=== PATIENT | female | born 1995 | race Hispanic/Latino ===

== ENCOUNTER 2020-07-11 22:37 | Emergency (ER) | payer OTHER ==
[~2020-07-11] VITALS: Ht 160 cm; Wt 52.3 kg
[2020-07-11] MEDS ORDERED: PROAAER10 INH (22:56)
[2020-07-11] MEDS ORDERED: [UNRECOGNIZED DRUG - REMARK] (22:59)
[2020-07-11] MEDS ORDERED: ACETAMINOPHEN 500 MG TAB PO ONE (23:45)
[2020-07-12 00:41] LABS: BASO % 0.2 % (0.0-1.0); EOS # 0.2 10^3/uL (0.0-0.5); EOS % 2.5 % (0.0-3.0); HEMATOCRIT 34.8 % (36.0-47.0); HEMOGLOBIN 11.2 g/dl (12.0-15.5); LYMPH # 1.7 10^3/uL (1.5-5.0); MEAN CORPUSCULAR HEMOGLOBIN 31.2 pg (27.0-33.0); MEAN CORPUSCULAR HGB CONC 32.2 g/dl (32.0-36.5); MEAN CORPUSCULAR VOLUME 96.9 fl (80.0-96.0); MONO # 0.4 10^3/uL (0.0-0.8); MONO % 5.2 % (0.0-5.0); NEUTROPHILS # 5.7 10^3/uL (1.5-8.5); NEUTROPHILS % 70.2 % (36.0-66.0); PLATELET COUNT, AUTOMATED 258 10^3/uL (150-450); RED BLOOD COUNT 3.59 10^6/uL (4.00-5.40); WHITE BLOOD COUNT 8.1 10^3/uL (4.0-10.0)
[2020-07-12 00:56] LABS: HCG, SERUM QUALITATIVE NEGATIVE (NEGATIVE); INR 0.9; PROTHROMBIN TIME 12.3 SECONDS (12.5-14.3)
[2020-07-12 00:59] LABS: D-DIMER QUANT 995.04 ng/ml (<500)
[2020-07-12 01:02] LABS: ALBUMIN 3.7 GM/DL (3.2-5.2); ALT/SGPT 17 U/L (12-78); BILIRUBIN,TOTAL < 0.1 MG/DL (0.2-1.0); BLOOD UREA NITROGEN 13 MG/DL (7-18); C REACTIVE PROTEIN QUANTITATIV 0.59 MG/DL (0.00-0.30); CALCIUM LEVEL 8.9 MG/DL (8.5-10.1); CARBON DIOXIDE LEVEL 27 MEQ/L (21-32); CHLORIDE LEVEL 108 MEQ/L (98-107); CK-MB VALUE MASS 1.1 NG/ML (<3.6); CPK CREATINE PHOSPHOKINASE 62 U/L (26-192); CREATININE FOR GFR 0.77 MG/DL (0.55-1.30); FERRITIN 53 NG/ML (8-252); GLOMERULAR FILTRATION RATE > 60.0 (>60); GLUCOSE, FASTING 99 MG/DL (70-100); MB/CK RELATIVE INDEX 1.77 (< OR =4); POTASSIUM SERUM 3.7 MEQ/L (3.5-5.1); SODIUM LEVEL 139 MEQ/L (136-145); TOTAL PROTEIN 7.5 GM/DL (6.4-8.2); TROPONIN I < 0.02 NG/ML (< 0.10)
--- NOTE | 2020-07-12 02:23 | REPVR ---
PROCEDURE INFORMATION: Exam: XR Chest, 1 View Exam date and time: 07/12/2020 1:46 AM Age: 24 years old Clinical indication: Other: Coronavirus workup TECHNIQUE: Imaging protocol: XR of the chest Views: 1 view. COMPARISON: No relevant prior studies available. FINDINGS: Lungs: Unremarkable. No consolidation. Pleural space: Unremarkable. No pleural effusion. No pneumothorax. Heart/Mediastinum: Unremarkable. No cardiomegaly. Bones/joints: Unremarkable. IMPRESSION: No acute findings. Electronically signed by: Joey Cee On 07/12/2020 02:23:19 AM
[2020-07-12 03:31] VITALS: BP 122/72
== END 2020-07-12 03:57 | disposition home or self-care (01) ==
LOC: M ED 22:37
DX: J00 Acute nasopharyngitis [common cold] (principal); J45.909 Unspecified asthma, uncomplicated; Z88.8 Allergy status to other drugs, medicaments and biological substances

== ENCOUNTER → 2020-11-13 | Outpatient (CLI) | payer OTHER ==
[~2020-11-13] MED LIST: PROAAER10 INH; [UNRECOGNIZED DRUG - REMARK]
== END ==
LOC: M LABSMTC 14:15
PROVIDERS: ATTEND Family Medicine
DX: Z20.828 Contact with and (suspected) exposure to other viral communicable diseases (principal)
CPT/HCPCS: C9803; U0003

== ENCOUNTER 2020-12-02 11:59 | Emergency (ER) | payer OTHER ==
[~2020-12-02] VITALS: Ht 162.6 cm; Wt 58.2 kg
[2020-12-02] MEDS ORDERED: ONDANSETRON 4MG/2ML VIAL IV ONE (16:05)
[2020-12-02] MEDS ORDERED: NS 500 ML IV ONE (16:05)
[2020-12-02 16:27] LABS: URINE PREG TEST POSITIVE (NEGATIVE)
[2020-12-02 16:41] LABS: BASO % 0.3 % (0.0-1.0); EOS # 0.1 10^3/uL (0.0-0.5); EOS % 1.9 % (0.0-3.0); HEMOGLOBIN 11.9 g/dl (12.0-15.5); LYMPH # 2.2 10^3/uL (1.5-5.0); LYMPH % 31.7 % (24.0-44.0); MEAN CORPUSCULAR HEMOGLOBIN 31.5 pg (27.0-33.0); MEAN CORPUSCULAR HGB CONC 33.1 g/dl (32.0-36.5); MEAN CORPUSCULAR VOLUME 95.2 fl (80.0-96.0); MONO # 0.4 10^3/uL (0.0-0.8); NEUTROPHILS # 4.1 10^3/uL (1.5-8.5); NEUTROPHILS % 59.8 % (36.0-66.0); PLATELET COUNT, AUTOMATED 273 10^3/uL (150-450); RED BLOOD COUNT 3.78 10^6/uL (4.00-5.40); WHITE BLOOD COUNT 6.9 10^3/uL (4.0-10.0)
[2020-12-02] MEDS ORDERED: REGL10TA6 PO (16:44)
[2020-12-02 17:06] LABS: ALT/SGPT 16 U/L (12-78); BILIRUBIN,TOTAL 0.3 MG/DL (0.2-1.0); BLOOD UREA NITROGEN 9 MG/DL (7-18); CALCIUM LEVEL 9.2 MG/DL (8.5-10.1); CARBON DIOXIDE LEVEL 26 MEQ/L (21-32); CHLORIDE LEVEL 107 MEQ/L (98-107); CREATININE FOR GFR 0.58 MG/DL (0.55-1.30); GLOMERULAR FILTRATION RATE > 60.0 (>60); GLUCOSE, FASTING 80 MG/DL (70-100); LIPASE 134 U/L (73-393); POTASSIUM SERUM 3.6 MEQ/L (3.5-5.1); SODIUM LEVEL 138 MEQ/L (136-145); TOTAL PROTEIN 7.2 GM/DL (6.4-8.2)
[2020-12-02 17:59] VITALS: BP 106/60
== END 2020-12-02 18:01 | disposition home or self-care (01) ==
LOC: M ED 11:59
DX: Z32.01 Encounter for pregnancy test, result positive (principal); R11.2 Nausea with vomiting, unspecified; R06.02 Shortness of breath; R53.83 Other fatigue; R50.81 Fever presenting with conditions classified elsewhere; R63.8 Other symptoms and signs concerning food and fluid intake; Z88.8 Allergy status to other drugs, medicaments and biological substances
CPT/HCPCS: 80053; 81001; 83690; 84703; 85025; 87798; 96361; 96374; 99284; J2405

== ENCOUNTER 2020-12-22 08:15 | Emergency (ER) | payer OTHER ==
[~2020-12-22] VITALS: Ht 157.5 cm; Wt 55.9 kg
[~2020-12-22 08:15] MED LIST changes: +REGL10TA6 PO
[2020-12-22 08:48] LABS: BASO % 0.2 % (0.0-1.0); EOS # 0.2 10^3/uL (0.0-0.5); EOS % 3.5 % (0.0-3.0); HEMATOCRIT 35.3 % (36.0-47.0); HEMOGLOBIN 11.4 g/dl (12.0-15.5); LYMPH # 1.8 10^3/uL (1.5-5.0); LYMPH % 30.1 % (24.0-44.0); MEAN CORPUSCULAR HEMOGLOBIN 31.1 pg (27.0-33.0); MEAN CORPUSCULAR HGB CONC 32.3 g/dl (32.0-36.5); MEAN CORPUSCULAR VOLUME 96.2 fl (80.0-96.0); MONO # 0.3 10^3/uL (0.0-0.8); NEUTROPHILS # 3.7 10^3/uL (1.5-8.5); PLATELET COUNT, AUTOMATED 217 10^3/uL (150-450); RED BLOOD COUNT 3.67 10^6/uL (4.00-5.40)
[2020-12-22 09:06] LABS: AMORPHOUS SEDIMENT SMALL (NEGATIVE); APPEARANCE, URINE HAZY (CLEAR); BACTERIA, URINE AUTO 1+ (NEGATIVE); BILIRUBIN, URINE AUTO NEGATIVE (NEGATIVE); BLOOD, URINE BLOOD NEGATIVE (NEGATIVE); COLOR, URINE YELLOW (YELLOW); GLUCOSE, URINE (UA) AUTO NEGATIVE (NEGATIVE); KETONE, URINE AUTO NEGATIVE (NEGATIVE); LEUKOCYTE ESTERASE, URINE AUTO NEGATIVE (NEGATIVE); NITRITE, URINE AUTO NEGATIVE (NEGATIVE); PROTEIN, URINE AUTO NEGATIVE (NEGATIVE); RBC, URINE AUTO 1 /HPF (0-3); SPECIFIC GRAVITY URINE AUTO 1.018 (1.002-1.035); SQUAMOUS EPITHELIAL CELL UR AU 1 /HPF (0-6); UROBILINOGEN, URINE AUTO 0.2 mg/dL (0.0-2.0); WBC, URINE AUTO 1 /HPF (0-3)
[2020-12-22] MEDS ORDERED: METOCLOPRAMIDE INJ 10MG/2ML VIAL (J2765 PER 1) IV ONE (09:15)
[2020-12-22] MEDS ORDERED: ACETAMINOPHEN TAB 650MG DOSE (2X325MG) PO ONE (09:15)
[2020-12-22] MEDS ORDERED: NS 1,000 ML IV ONE (09:15)
[2020-12-22 09:27] LABS: BLOOD UREA NITROGEN 11 MG/DL (7-18); CALCIUM LEVEL 8.9 MG/DL (8.5-10.1); CARBON DIOXIDE LEVEL 25 MEQ/L (21-32); CHLORIDE LEVEL 109 MEQ/L (98-107); CREATININE FOR GFR 0.47 MG/DL (0.55-1.30); GLOMERULAR FILTRATION RATE > 60.0 (>60); GLUCOSE, FASTING 72 MG/DL (70-100); HCG, SERUM QUANTITATIVE 69091 MIU/ML; POTASSIUM SERUM 4.7 MEQ/L (3.5-5.1); SODIUM LEVEL 140 MEQ/L (136-145)
--- NOTE | 2020-12-22 10:06 | REP ---
INDICATION: 8 weeks, vag bleeding, pelvic cramping COMPARISON: None. TECHNIQUE: Transabdominal 1st trimester obstetrical ultrasound with color Doppler evaluation. FINDINGS: Single live early intrauterine is appreciated. Gestational sac with yolk sac and pole identified. [place]-rump length of 9 mm corresponds to 7 weeks 0 days gestational age with estimated date of delivery 08/10/2021. heart rate equals 158 beats per minute. No gross abnormalities are identified. Maternal ovaries are normal and a 2 cm involuting right corpus luteal cyst is identified. IMPRESSION: Single live early intrauterine at 7 weeks 0 days gestational age. Complete anatomical assessment should be performed and 19-20 weeks. <Electronically signed by Ravi Elaine > 12/22/20 1002
[2020-12-22] MEDS ORDERED: CEPH500C PO (12:50)
[2020-12-22 13:10] VITALS: BP 111/62
== END 2020-12-22 13:12 | disposition home or self-care (01) ==
LOC: M ED 08:15
DX: O20.0 Threatened abortion (principal); O26.891 Other specified pregnancy related conditions, first trimester; Z32.01 Encounter for pregnancy test, result positive; O34.81 Maternal care for other abnormalities of pelvic organs, first trimester; O26.851 Spotting complicating pregnancy, first trimester; O23.91 Unspecified genitourinary tract infection in pregnancy, first trimester; O9A.211 Injury, poisoning and certain other consequences of external causes complicating pregnancy, first trimester; Z86.19 Personal history of other infectious and parasitic diseases; O99.341 Other mental disorders complicating pregnancy, first trimester; O99.511 Diseases of the respiratory system complicating pregnancy, first trimester; Z3A.01 Less than 8 weeks gestation of pregnancy; Z88.8 Allergy status to other drugs, medicaments and biological substances
CPT/HCPCS: 76801; 80048; 81001; 84702; 85025; 86850; 86900; 86901; 87086; 87210; 87490; 87590; 87661; 87798; 96361; 96374; 99283; J2765

== ENCOUNTER → 2021-02-03 | Outpatient (CLI) | payer SELFPAY ==
[~2021-02-03] MED LIST changes: +CEPH500C PO
== END ==
LOC: M LABSMTC 10:23
PROVIDERS: ATTEND Pediatrics
DX: Z11.52 Encounter for screening for COVID-19 (principal)

== ENCOUNTER 2021-02-16 15:40 | Emergency (ER) | payer OTHER, SELFPAY ==
[~2021-02-16] VITALS: Ht 160 cm; Wt 59.5 kg
[2021-02-16] MEDS ORDERED: PREN1CHW PO (15:53)
[2021-02-16] MEDS ORDERED: ONDANSETRON 4MG/2ML VIAL As Ordered ONE (16:31)
[2021-02-16 16:47] LABS: BASO % 0.1 % (0.0-1.0); EOS # 0.2 10^3/uL (0.0-0.5); EOS % 2.5 % (0.0-3.0); HEMATOCRIT 30.3 % (36.0-47.0); HEMOGLOBIN 10.9 g/dl (12.0-15.5); LYMPH % 21.9 % (24.0-44.0); MEAN CORPUSCULAR HEMOGLOBIN 32.8 pg (27.0-33.0); MEAN CORPUSCULAR VOLUME 91.3 fl (80.0-96.0); MONO # 0.4 10^3/uL (0.0-0.8); MONO % 4.5 % (2.0-8.0); NEUTROPHILS # 6.5 10^3/uL (1.5-8.5); NEUTROPHILS % 70.5 % (36.0-66.0); PLATELET COUNT, AUTOMATED 243 10^3/uL (150-450); RED BLOOD COUNT 3.32 10^6/uL (4.00-5.40); WHITE BLOOD COUNT 9.3 10^3/uL (4.0-10.0)
[2021-02-16] MEDS ORDERED: NS 1,000 ML IV ONE (17:20)
[2021-02-16] MEDS ORDERED: ONDANSETRON 4MG/2ML VIAL IV ONE (17:20)
[2021-02-16 17:55] LABS: BLOOD UREA NITROGEN 8 MG/DL (7-18); CALCIUM LEVEL 7.4 MG/DL (8.5-10.1); CARBON DIOXIDE LEVEL 18 MEQ/L (21-32); CHLORIDE LEVEL 117 MEQ/L (98-107); CREATININE FOR GFR 0.19 MG/DL (0.55-1.30); GLOMERULAR FILTRATION RATE > 60.0 (>60); GLUCOSE, FASTING 69 MG/DL (70-100); POTASSIUM SERUM 3.3 MEQ/L (3.5-5.1); SODIUM LEVEL 144 MEQ/L (136-145)
--- NOTE | 2021-02-16 18:16 | REP ---
INDICATION: 14 wks, vag bldh. COMPARISON: Comparison study Dec 22 2020.. TECHNIQUE: Transabdominal obstetric sonography. FINDINGS: Scanning through the gravid uterus demonstrates a viable single intrauterine gestation in cephalic lie. motion is observed and heart rate is recorded at 158 beats per minute. A posterior placenta is seen, grade 0, without evidence of placenta previa. Closed cervical length is measured at 3.1 cm transabdominally. No extrauterine abnormality is observed. Amniotic fluid is subjectively normal. . Biometry chart: BPD 3.0 cm, 15 weeks 3 days Head circumference 11.3 cm, 15 weeks 4 days Abdominal circumference 10.4 cm, 16 weeks 3 days Femur length 1.9 cm, 15 weeks 4 days Humeral length 1.9 cm, 15 weeks 3 days HC AC ratio normal 1.09 Cephalic index normal 0.71 Estimated weight 140 g, 0 lb 4 oz IMPRESSION: Viable single intrauterine gestation at 15 weeks 5 days by today's composite sonographic criteria. BORIS by today's sonography August 05, 2021. No complication identified. Expected gestational age estimate based on prior sonography 15 weeks 0 days. BORIS by prior sonography 10 August 2021. No complications seen. <Electronically signed by Talat Morales > 02/16/21 [id number]
[2021-02-16 18:33] LABS: ALBUMIN 2.5 GM/DL (3.2-5.2); ALT/SGPT 20 U/L (12-78); BILIRUBIN,DIRECT < 0.1 MG/DL (0.0-0.2); BILIRUBIN,TOTAL 0.1 MG/DL (0.2-1.0); HCG, SERUM QUANTITATIVE 24258 MIU/ML; LIPASE 117 U/L (73-393); TOTAL PROTEIN 5.3 GM/DL (6.4-8.2)
[2021-02-16 19:10] LABS: GC DNA AMPLIFICATION NEGATIVE (NEGATIVE)
[2021-02-16] MEDS ORDERED: POTASSIUM CHLORIDE 10 MEQ SR TABLET PO ONE (19:30)
[2021-02-16 20:15] VITALS: BP 117/60
--- NOTE | 2021-02-17 20:28 | ECGEPIP ---
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
== END 2021-02-16 20:23 | disposition home or self-care (01) ==
LOC: M ED 17:17
DX: O20.0 Threatened abortion (principal); O99.342 Other mental disorders complicating pregnancy, second trimester; Z86.19 Personal history of other infectious and parasitic diseases; Z3A.15 15 weeks gestation of pregnancy; Z88.8 Allergy status to other drugs, medicaments and biological substances
CPT/HCPCS: 76811; 80048; 80076; 81001; 83690; 84702; 85025; 86850; 86900; 86901; 87086; 87210; 87661; 93005; 96361; 96374; 99284; J2405

== ENCOUNTER 2021-05-06 12:54 | Emergency (ER) | payer OTHER ==
[~2021-05-06] VITALS: Ht 160 cm; Wt 65.9 kg
[~2021-05-06 12:54] MED LIST changes: +PREN1CHW PO
[2021-05-06 15:31] LABS: RSV AMPLIFICATION NEGATIVE (NEGATIVE)
[2021-05-06 19:37] LABS: BASO % 0.1 % (0.0-1.0); EOS # 0.1 10^3/uL (0.0-0.5); EOS % 0.8 % (0.0-3.0); HEMATOCRIT 32.5 % (36.0-47.0); HEMOGLOBIN 10.7 g/dl (12.0-15.5); LYMPH # 1.5 10^3/uL (1.5-5.0); LYMPH % 13.9 % (24.0-44.0); MEAN CORPUSCULAR HEMOGLOBIN 32.2 pg (27.0-33.0); MEAN CORPUSCULAR HGB CONC 32.9 g/dl (32.0-36.5); MEAN CORPUSCULAR VOLUME 97.9 fl (80.0-96.0); MONO # 0.5 10^3/uL (0.0-0.8); MONO % 4.7 % (2.0-8.0); NEUTROPHILS # 8.8 10^3/uL (1.5-8.5); NEUTROPHILS % 79.9 % (36.0-66.0); PLATELET COUNT, AUTOMATED 235 10^3/uL (150-450); RED BLOOD COUNT 3.32 10^6/uL (4.00-5.40)
[2021-05-06 20:07] LABS: ALT/SGPT 18 U/L (12-78); BILIRUBIN,DIRECT < 0.1 MG/DL (0.0-0.2); BILIRUBIN,TOTAL 0.2 MG/DL (0.2-1.0); BLOOD UREA NITROGEN 7 MG/DL (7-18); CALCIUM LEVEL 8.6 MG/DL (8.5-10.1); CARBON DIOXIDE LEVEL 26 MEQ/L (21-32); CHLORIDE LEVEL 105 MEQ/L (98-107); CK-MB VALUE MASS < 1.0 NG/ML (<3.6); CPK CREATINE PHOSPHOKINASE 25 U/L (26-192); CREATININE FOR GFR 0.42 MG/DL (0.55-1.30); GLOMERULAR FILTRATION RATE > 60.0 (>60); GLUCOSE, FASTING 71 MG/DL (70-100); LIPASE 101 U/L (73-393); POTASSIUM SERUM 3.9 MEQ/L (3.5-5.1); SODIUM LEVEL 137 MEQ/L (136-145); TOTAL PROTEIN 6.7 GM/DL (6.4-8.2); TROPONIN I < 0.02 NG/ML (< 0.10)
[2021-05-06] MEDS ORDERED: NS 1,000 ML IV ONE (20:35)
[2021-05-06] MEDS ORDERED: MULTIVITAMIN -ADULT INJECTION 10 ML, THIAMINE INJection 100 MG, FOLIC ACID 1 MG in NS 1... IV ONE (20:35)
[2021-05-06 21:26] VITALS: BP 139/64
[2021-05-06] MEDS ORDERED: FAMO1TAB11 PO (21:50)
[2021-05-06] MEDS ORDERED: MULTTAB20 PO (21:50)
[2021-05-06] MEDS ORDERED: HOME MED LIST COMPLETE! XX SCH (21:50)
[2021-05-06] MEDS ORDERED: FERR1TAB8 PO (21:50)
--- NOTE | 2021-05-06 21:57 | ECGEPIP ---
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
--- NOTE | 2021-05-06 23:23 | REPVR ---
PROCEDURE INFORMATION: Exam: US Abdomen, Limited; Right Upper Quadrant Exam date and time: 05/06/2021 9:41 PM Age: 25 years old Clinical indication: Abdominal pain; Acute; ; Additional info: Ruq pain, vomiting, TECHNIQUE: Imaging protocol: US abdomen. Real time ultrasound with image documentation. Limited exam focused on the right upper quadrant. COMPARISON: US OBS SINGEL GEST 02/16/2021 5:27 PM FINDINGS: Liver: The liver demonstrates no focal defects. Gallbladder: The gallbladder demonstrates no stones and no wall thickening measuring 2.6 mm. Common bile duct: The CBD measures 3 mm. Pancreas: The pancreas is normal. Right kidney: The right kidney is normal measuring 10.7 cm with no hydronephrosis. IMPRESSION: Negative right upper quadrant sonogram. Electronically signed by: Angelito Lyles On 05/06/2021 23:22:48 PM
== END 2021-05-06 22:16 | disposition admitted as inpatient to this hospital (09) ==
LOC: M ED 12:54
DX: O26.892 Other specified pregnancy related conditions, second trimester (principal); G89.28 Other chronic postprocedural pain; R07.9 Chest pain, unspecified; E16.2 Hypoglycemia, unspecified; O99.342 Other mental disorders complicating pregnancy, second trimester; O99.512 Diseases of the respiratory system complicating pregnancy, second trimester; Z88.0 Allergy status to penicillin

== ENCOUNTER 2021-05-06 22:09 | Outpatient (CLI) | payer OTHER ==
[~2021-05-06 22:09] MED LIST changes: +FAMO1TAB11 PO; +FERR1TAB8 PO; +MULTTAB20 PO
[2021-05-06 23:26] VITALS: BP 109/66
--- NOTE | 2021-05-06 23:36 | REPVR ---
PROCEDURE INFORMATION: Exam: US , Limited Exam date and time: 05/06/2021 11:22 PM Age: 25 years old Clinical indication: complicated by abdominal or pelvic pain; Generalized abdominal pain; Second trimester (14 weeks 0 days to 27 weeks 6 days); Gestational age or lmp: 26w2d; ; Additional info: Placental eval and cervical length TECHNIQUE: Imaging protocol: Real-time ultrasound of the maternal uterus with image documentation. Exam focused on the clinical indication. COMPARISON: US OBS SINGEL GEST 02/16/2021 5:27 PM FINDINGS: Gestation: Single intrauterine fetus. presentation: Breech presentation. heart rate: heartbeat of 143 bpm. Placenta: Fundal placenta with grade 1 change. Amniotic fluid index: NORMAN of 10.7 cm. MATERNAL: Cervix: The cervix is closed measuring 4.6 cm transabdominal and 4.7 cm transvaginal. IMPRESSION: 1. Single live intrauterine fetus in breech presentation. 2. Fundal placenta. 3. NORMAN of 10.7 cm. 4. Closed cervix measuring 4.7 cm transvaginal. Electronically signed by: Angelito Lyles On 05/06/2021 23:35:54 PM
[2021-05-06] MEDS ORDERED: TERBUTALINE SULFATE 1 MG/ML VIAL (J3105) SC ONE (23:40)
--- NOTE | 2021-05-07 01:14 | IPNPDOC ---
Text Note Date of Service The patient was seen on 05/06/21. NOTE Item Value Date Time White Blood Count 11.0 10^3/uL H 05/06/211918 Red Blood Count 3.32 10^6/uL L 05/06/211918 Hemoglobin 10.7 g/dl L 05/06/211918 Hematocrit 32.5 % L 05/06/211918 Mean Corpuscular Volume 97.9 fl H 05/06/211918 Mean Corpuscular Hemoglobin 32.2 pg 05/06/211918 Mean Corpuscular Hemoglobin Concent 32.9 g/dl 05/06/211918 Red Cell Distribution Width 13.0 % 05/06/211918 Platelet Count 235 10^3/uL 05/06/211918 Immature Granulocyte % (Auto) 0.6 % 05/06/211918 Neutrophils (%) (Auto) 79.9 % H 05/06/211918 Lymphocytes (%) (Auto) 13.9 % L 05/06/211918 Monocytes (%) (Auto) 4.7 % 05/06/211918 Eosinophils (%) (Auto) 0.8 % 05/06/211918 Basophils (%) (Auto) 0.1 % 05/06/211918 Neutrophils # (Auto) 8.8 10^3/uL H 05/06/211918 Lymphocytes # (Auto) 1.5 10^3/uL 05/06/211918 Monocytes # (Auto) 0.5 10^3/uL 05/06/211918 Eosinophils # (Auto) 0.1 10^3/uL 05/06/211918 Vital Signs Label Value Date Time Patient Temperature 98.4 degrees F 05/06/212125 Temperature Source Temporal 05/06/212125 Pulse 99 05/06/212125 Respiratory Rate 20 bpm 05/06/212125 Blood Pressure Assessment 139/64 (89) 05/06/212125 Location Right Arm Source Automatic Cuff (NIBP) Position Sitting Blood Pressure Assessment 103/57 (72) 05/06/212002 Location Right Arm Source Automatic Cuff (NIBP) Position Sitting Pulse 75 05/06/212002 Respiratory Rate 18 bpm 05/06/212002 Patient Temperature 98.5 degrees F 05/06/212002 Temperature Source Temporal 05/06/212002 Patient Temperature 98.1 degrees F 05/06/21 1255 Temperature Source Temporal 05/06/21 1255 Pulse 76 05/06/21 1255 Respiratory Rate 17 bpm 05/06/21 1255 Blood Pressure Assessment 112/63 (79) 05/06/21 1255 Location Left Arm Source Automatic Cuff (NIBP) Position Sitting Bedside Pulse Oximetry 98 % 05/06/21 1255 Item Value Date Time Oxygen Delivery Method Room Air 05/06/21212505/06/2021 25 y.o lmp 10/16/20 edc by early us 08/10/2020 came to ed at 1200 hours complaints of nausea ruq pain abdominal pain . no vaginal discharge no bleeding . also complaint's of chest pain . PATIENT IN ED HAD US RUQ RE R/O STONES HAD CARDIAC WORK UP NEGATIVE HAD US CERVIX 5.0 CM VERTEX NORMAN NORMAL NO ABRUPTIO NST CATEGORY 1 STRIP MODERATE VARIABILITY ACCELERATIONS NOTED NO DECELERATIONS NO CONTRACTIONS NORMAN NORMAL PELVIC EXAMINATION NOT DILATED THICK CLOSED CONFIRMED US FINDINGS . PLAN TO HYDRATE PRECAUTIONS AND DISCHARGE FOLLOW UP WITH JACQUIE HAYDEN OB, RISK FACTORS ASTHMA CT POSITIVE BOB NEGATIVE [facility] NAME: CAIN SPAIN DATE OF : 1995 BUSINESS NUMBER: [id number] AGE: 25 SEX: F REPORT #: [id number] ROOM: ED TECHNOLOGIST: DAYTON DOCTOR: BROOKLYN SELLERS PA-C Ordered for Date&Time: 05/06/211949 cc: [~ rep ct ivnm] Service Date&Time: 05/06/212140 This report is in Signed status. Interpretation performed by [facility]. Thank you for having your radiology procedures performed at [facility] REPORT Date&Time printed: [~ rep prt dt last] [~ rep prt tm last] Page 2 of 2 [place] [id number] RADIOLOGY REPORT This report is in Signed status. Interpretation performed by [facility]. Thank you for having your radiology procedures performed at [facility] REPORT Date&Time printed: [~ rep prt dt last] [~ rep prt tm last] Page 1 of 2 NAME: CAIN SPAIN DATE OF : 1995 BUSINESS NUMBER: [id number] AGE: 25 SEX: F REPORT #: [id number] ROOM: ED TECHNOLOGIST: DAYTON DOCTOR: BROOKLYN SELLERS PA-C Ordered for Date&Time: 05/06/211949 cc: [~ rep ct ivnm] Service Date&Time: 05/06/212140 EXAMINATION REQUESTED: GALLBLADDER US REASON FOR PATIENT VISIT: CHEST PAIN/DIZZINESS/ NAUSEA REASON FOR EXAMINATION: RUQ pain, vomiting, PROCEDURE INFORMATION: Exam: US Abdomen, Limited; Right Upper Quadrant Exam date and time: 05/06/2021 9:41 PM Age: 25 years old Clinical indication: Abdominal pain; Acute; ; Additional info: Ruq pain, vomiting, TECHNIQUE: Imaging protocol: US abdomen. Real time ultrasound with image documentation. Limited exam focused on the right upper quadrant. COMPARISON: US OBS SINGEL GEST 02/16/2021 5:27 PM FINDINGS: Liver: The liver demonstrates no focal defects. Gallbladder: The gallbladder demonstrates no stones and no wall thickening measuring 2.6 mm. Common bile duct: The CBD measures 3 mm. Pancreas: The pancreas is normal. Right kidney: The right kidney is normal measuring 10.7 cm with no hydronephrosis. IMPRESSION: Negative right upper quadrant sonogram. Electronically signed by: Roberto Lyles On 05/06/2021 23:22:48 PM NAME: CAIN SPAIN DATE OF : 1995 BUSINESS NUMBER: [id number] AGE: 25 SEX: F REPORT #: [id number] [facility]: [place] DOCTOR: Ambrocio Armenta MD Ordered for Date&Time: 05/06/214 cc: [~ rep ct ivnm] Service Date&Time: 05/06/21 2322 EXAMINATION REQUESTED: Obs. Limited, NORMAN US REASON FOR PATIENT VISIT: ABDOMINAL PAIN REASON FOR EXAMINATION: PLACENTAL EVAL AND CERVICAL LENGTH PROCEDURE INFORMATION: Exam: US , Limited Exam date and time: 05/06/2021 11:22 PM Age: 25 years old Clinical indication: complicated by abdominal or pelvic pain; Generalized abdominal pain; Second trimester (14 weeks 0 days to 27 weeks 6 days); Gestational age or lmp: 26w2d; ; Additional info: Placental eval and cervical length TECHNIQUE: Imaging protocol: Real-time ultrasound of the maternal uterus with image documentation. Exam focused on the clinical indication. COMPARISON: US OBS SINGEL GEST 02/16/2021 5:27 PM FINDINGS: Gestation: Single intrauterine fetus. presentation: Breech presentation. heart rate: heartbeat of 143 bpm. Placenta: Fundal placenta with grade 1 change. Amniotic fluid index: NORMAN of 10.7 cm. MATERNAL: Cervix: The cervix is closed measuring 4.6 cm transabdominal and 4.7 cm transvaginal. IMPRESSION: 1. Single live intrauterine fetus in breech presentation. 2. Fundal placenta. 3. NORMAN of 10.7 cm. 4. Closed cervix measuring 4.7 cm transvaginal. Electronically signed by: Roberto Lyles On 05/06/2021 23:35:54 PM DD: ROBERTO LYLES MD 05/06/212321 DT: KATIE 05/06/212334 DS: [facility] 05/06/212334 DD: ROBERTO LYLES MD 05/06/21 2141R DT: KATIE 05/06/212321 DS: [facility] 05/06/212321 [~ rep ct labl] REVIEWED US BREECH PRESENTATION NORMAN 10.7 CM CERVIX 4.6 CM NO FUNNELING . STILL CHEST PAIN HOWEVER CARDIAC WORK UP NORMAL ENZYMES NORMAL PATIENT HAVING CONTRACTIONS HOWEVER ALSO INCREASED ACTIVITY. PLAN GIVE TERBUTALINE CONTINUE TO HYDRATE OFFER MYLANTA IE POSSIBLE GAS OR GERD , POST TERBUTALINE NO CONTRACTIONS NO CHEST PAIN . DISCHARGED WITHPRECAUTIONS Ambrocio Armenta MD May 06, 2021 23:25
== END 2021-05-07 01:30 | disposition home or self-care (01) ==
LOC: M LDO 22:09
PROVIDERS: ATTEND Obstetrics & Gynecology
DX: O26.893 Other specified pregnancy related conditions, third trimester (principal); R11.0 Nausea; Z3A.26 26 weeks gestation of pregnancy; O32.1XX0 Maternal care for breech presentation, not applicable or unspecified; R10.9 Unspecified abdominal pain; R07.89 Other chest pain; Z88.8 Allergy status to other drugs, medicaments and biological substances
CPT/HCPCS: 36415; 59025; 76705; 76815; 76817; 80053; 81001; 82248; 82550; 82553; 83690; 84484; 85025; 87631; 93005; 96361; 96372; 96374; 99284; G0378; G0463; J3105; J3411

== ENCOUNTER 2021-07-08 07:45 | Inpatient (IN) | payer OTHER ==
[~2021-07-08] VITALS: Ht 160 cm; Wt 69.5 kg
[2021-07-08] VITALS (16 sets, daily range): BP systolic 96–133; BP diastolic 52–91
[2021-07-08] MEDS ORDERED: ACET500P3 PO (08:12)
[2021-07-08] MEDS ORDERED: VITA250T4 PO (08:12)
[2021-07-08] MEDS ORDERED: HOME MED LIST COMPLETE! XX SCH (08:15)
[2021-07-08] MEDS ORDERED: NS 1,000 ML IV ONE (09:05)
[2021-07-08] MEDS ORDERED: LACTATED RINGER'S 1000 ML IV ONE (09:35)
[2021-07-08] MEDS ORDERED: LR 1,000 ML IV SCH (09:35)
[2021-07-08 09:41] LABS: HEMATOCRIT 28.3 % (36.0-47.0); HEMOGLOBIN 9.5 g/dl (12.0-15.5); MEAN CORPUSCULAR HGB CONC 33.6 g/dl (32.0-36.5); MEAN CORPUSCULAR VOLUME 95.3 fl (80.0-96.0); PLATELET COUNT, AUTOMATED 213 10^3/uL (150-450); RED BLOOD COUNT 2.97 10^6/uL (4.00-5.40); WHITE BLOOD COUNT 8.8 10^3/uL (4.0-10.0)
[2021-07-08 09:42] LABS: APPEARANCE, URINE HAZY (CLEAR); BACTERIA, URINE AUTO NEGATIVE (NEGATIVE); BILIRUBIN, URINE AUTO NEGATIVE (NEGATIVE); BLOOD, URINE BLOOD 2+ (NEGATIVE); COLOR, URINE YELLOW (YELLOW); GLUCOSE, URINE (UA) AUTO NEGATIVE (NEGATIVE); KETONE, URINE AUTO NEGATIVE (NEGATIVE); LEUKOCYTE ESTERASE, URINE AUTO NEGATIVE (NEGATIVE); MUCUS, URINE SMALL (NEGATIVE); NITRITE, URINE AUTO NEGATIVE (NEGATIVE); PROTEIN, URINE AUTO NEGATIVE (NEGATIVE); RBC, URINE AUTO 3 /HPF (0-3); SPECIFIC GRAVITY URINE AUTO 1.016 (1.002-1.035); SQUAMOUS EPITHELIAL CELL UR AU 3 /HPF (0-6); WBC, URINE AUTO 2 /HPF (0-3)
[2021-07-08 11:32] LABS: GC DNA AMPLIFICATION NEGATIVE (NEGATIVE)
[2021-07-08] MEDS: BETAMETHASONE SOLUSPAN 6MG/ML 5ML VIAL (J0702 PER 3MG) IM SCH (12:15)
[2021-07-08] MEDS ORDERED: IRON SUCROSE 100MG 5ML VIAL (J1756 PER 1MG) IV SCH (13:00)
[2021-07-08] MEDS: IRON SUCROSE 200 MG in NS 100 ML OVER 1 HR IV SCH (15:23)
[2021-07-08] MEDS ORDERED: LR 500 ML IV ONE (23:35)
[2021-07-09] VITALS (11 sets, daily range): BP systolic 96–131; BP diastolic 50–67
[2021-07-09] MEDS ORDERED: LACTATED RINGER'S 1000 ML IV ONE (09:00)
[2021-07-09 09:08] LABS: HEMATOCRIT 29.7 % (36.0-47.0); MEAN CORPUSCULAR HEMOGLOBIN 32.1 pg (27.0-33.0); MEAN CORPUSCULAR HGB CONC 33.7 g/dl (32.0-36.5); MEAN CORPUSCULAR VOLUME 95.2 fl (80.0-96.0); PLATELET COUNT, AUTOMATED 222 10^3/uL (150-450); RED BLOOD COUNT 3.12 10^6/uL (4.00-5.40); WHITE BLOOD COUNT 14.1 10^3/uL (4.0-10.0)
[2021-07-09] MEDS: BETAMETHASONE SOLUSPAN 6MG/ML 5ML VIAL (J0702 PER 3MG) IM SCH (12:04)
[2021-07-09] MEDS: IRON SUCROSE 200 MG in NS 100 ML OVER 1 HR IV SCH (15:05)
[2021-07-10] VITALS (9 sets, daily range): BP systolic 100–129; BP diastolic 54–69
[2021-07-10 07:59] LABS: HEMOGLOBIN 8.7 g/dl (12.0-15.5); MEAN CORPUSCULAR HEMOGLOBIN 32.3 pg (27.0-33.0); MEAN CORPUSCULAR HGB CONC 33.5 g/dl (32.0-36.5); MEAN CORPUSCULAR VOLUME 96.7 fl (80.0-96.0); PLATELET COUNT, AUTOMATED 206 10^3/uL (150-450); RED BLOOD COUNT 2.69 10^6/uL (4.00-5.40)
[2021-07-10 08:11] LABS: INR 0.97; PROTHROMBIN TIME 13.3 SECONDS (12.7-14.5)
[2021-07-10 08:12] LABS: PARTIAL THROMBOPLASTIN TIME 30.4 SECONDS (25.9-37.0)
[2021-07-10 08:25] LABS: ALBUMIN 2.3 GM/DL (3.2-5.2); ALT/SGPT 11 U/L (12-78); BILIRUBIN,TOTAL 0.1 MG/DL (0.2-1.0); BLOOD UREA NITROGEN 5 MG/DL (7-18); CALCIUM LEVEL 8.6 MG/DL (8.5-10.1); CARBON DIOXIDE LEVEL 22 MEQ/L (21-32); CHLORIDE LEVEL 111 MEQ/L (98-107); GLOMERULAR FILTRATION RATE > 60.0 (>60); GLUCOSE, FASTING 101 MG/DL (70-100); POTASSIUM SERUM 3.6 MEQ/L (3.5-5.1); SODIUM LEVEL 140 MEQ/L (136-145); TOTAL PROTEIN 5.4 GM/DL (6.4-8.2)
[2021-07-10] MEDS ORDERED: ONDANSETRON 4MG/2ML VIAL IV PRN (09:10)
[2021-07-10] MEDS: IRON SUCROSE 200 MG in NS 100 ML OVER 1 HR IV SCH (15:18)
[2021-07-11] VITALS (10 sets, daily range): BP systolic 80–117; BP diastolic 41–64
[2021-07-11 06:35] LABS: HEMATOCRIT 25.6 % (36.0-47.0); HEMOGLOBIN 8.5 g/dl (12.0-15.5); MEAN CORPUSCULAR HEMOGLOBIN 32.2 pg (27.0-33.0); MEAN CORPUSCULAR HGB CONC 33.2 g/dl (32.0-36.5); PLATELET COUNT, AUTOMATED 204 10^3/uL (150-450); RED BLOOD COUNT 2.64 10^6/uL (4.00-5.40); WHITE BLOOD COUNT 12.6 10^3/uL (4.0-10.0)
[2021-07-11 06:55] LABS: INR 1.02; PARTIAL THROMBOPLASTIN TIME 29.6 SECONDS (25.9-37.0); PROTHROMBIN TIME 13.8 SECONDS (12.7-14.5)
[2021-07-11] MEDS ORDERED: LACTATED RINGER'S 1000 ML IV ONE ×2 (11:55→22:00)
[2021-07-11] MEDS ORDERED: ACETAMINOPHEN 500 MG TAB PO PRN (13:20)
[2021-07-12 03:00] VITALS: BP 96/53
[2021-07-12 06:03] VITALS: BP 98/55
[2021-07-12 09:59] VITALS: BP 113/63
[2021-07-12 14:12] VITALS: BP 113/64
[2021-07-12 18:02] VITALS: BP 137/63
[2021-07-12 22:45] VITALS: BP 111/61
[2021-07-13 00:19] VITALS: BP 102/55
[2021-07-13 04:19] VITALS: BP 98/55
[2021-07-13 06:08] VITALS: BP 107/62
[2021-07-13 07:05] VITALS: BP 112/71
[2021-07-13 10:03] LABS: HEMATOCRIT 28.9 % (36.0-47.0); HEMOGLOBIN 9.5 g/dl (12.0-15.5); MEAN CORPUSCULAR HEMOGLOBIN 32.3 pg (27.0-33.0); MEAN CORPUSCULAR HGB CONC 32.9 g/dl (32.0-36.5); MEAN CORPUSCULAR VOLUME 98.3 fl (80.0-96.0); PLATELET COUNT, AUTOMATED 230 10^3/uL (150-450); RED BLOOD COUNT 2.94 10^6/uL (4.00-5.40); WHITE BLOOD COUNT 11.2 10^3/uL (4.0-10.0)
[2021-07-13 11:08] VITALS: BP 100/73
== END 2021-07-13 16:04 | disposition home or self-care (01) | DRG 833 ==
LOC: M LDO 07:45 → M LDI 11:03
PROVIDERS: ADMIT Obstetrics & Gynecology; ATTEND Obstetrics & Gynecology
DX: O45.93 Premature separation of placenta, unspecified, third trimester (principal); Z3A.35 35 weeks gestation of pregnancy; O99.013 Anemia complicating pregnancy, third trimester; D64.9 Anemia, unspecified; O99.343 Other mental disorders complicating pregnancy, third trimester; F32.A Depression, unspecified; Z91.51 Personal history of suicidal behavior; Z20.822 Contact with and (suspected) exposure to COVID-19; Z88.8 Allergy status to other drugs, medicaments and biological substances

== ENCOUNTER → 2021-07-14 | Outpatient (CLI) | payer OTHER ==
[~2021-07-14] MED LIST changes: +ACET500P3 PO; +VITA250T4 PO
[2021-07-14 17:00] LABS: HEMATOCRIT 29.7 % (36.0-47.0); MEAN CORPUSCULAR HEMOGLOBIN 33.1 pg (27.0-33.0); MEAN CORPUSCULAR HGB CONC 33.7 g/dl (32.0-36.5); MEAN CORPUSCULAR VOLUME 98.3 fl (80.0-96.0); PLATELET COUNT, AUTOMATED 229 10^3/uL (150-450); RED BLOOD COUNT 3.02 10^6/uL (4.00-5.40)
[2021-07-14 17:11] LABS: PARTIAL THROMBOPLASTIN TIME 30.6 SECONDS (25.9-37.0); PROTHROMBIN TIME 13.6 SECONDS (12.7-14.5)
== END ==
LOC: M LAB 15:34
PROVIDERS: ATTEND Registered Nurse
DX: O26.893 Other specified pregnancy related conditions, third trimester (principal); R10.9 Unspecified abdominal pain; Z36.89 Encounter for other specified antenatal screening

== ENCOUNTER → 2021-07-14 | Outpatient (CLI) | payer OTHER ==
--- NOTE | 2021-07-14 15:30 | REP ---
INDICATION: ABRUPTION COMPARISON: 07/13/2021 TECHNIQUE: Transabdominal obstetrical ultrasound with color Doppler evaluation. FINDINGS: Examination demonstrates a single live intrauterine in cephalic presentation. motion is identified by technologist. Placenta is noted posteriorly and grade 2 without evidence for placenta previa or abruption. Amniotic fluid volume is normal. Cervix measures 4.2 cm in length and appears closed.. Selected gestational age: 36 weeks 1 day with BORIS 08/10/2021. FHR equals 139 beats per minute. NORMAN: 10.9 cm (7.7-24.9) Umbilical artery SD ratio: 2.64 (1.64-3.50) IMPRESSION: Single live advanced gestation in cephalic presentation. Amniotic fluid volume is normal. No evidence for placental abruption. <Electronically signed by Ravi Elaine > 07/14/21 8716
== END ==
LOC: M WHC 14:48
PROVIDERS: ATTEND Registered Nurse
DX: O26.893 Other specified pregnancy related conditions, third trimester (principal); R10.9 Unspecified abdominal pain

== ENCOUNTER 2021-07-24 11:27 | Inpatient (IN) | payer OTHER ==
[2021-07-24] VITALS (7 sets, daily range): BP systolic 103–129; BP diastolic 64–76
[~2021-07-24] VITALS: Ht 160 cm; Wt 68.9 kg
[2021-07-24] MEDS: miSOPROStol 25MCG 1/4 TABLET PO SCH ×2 (00:20→21:30)
[2021-07-24] MEDS ORDERED: OXYTOCIN DRIP 30 UNITS in IV 1 EA IV PRN ×4 (12:50)
[2021-07-24] MEDS ORDERED: LR 1,000 ML IV SCH (12:50)
[2021-07-24] MEDS ORDERED: miSOPROStol 25MCG 1/4 TABLET PO ONE (12:50)
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
[2021-07-24 13:50] LABS: HEMATOCRIT 32.1 % (36.0-47.0); HEMOGLOBIN 10.9 g/dl (12.0-15.5); MEAN CORPUSCULAR HEMOGLOBIN 32.7 pg (27.0-33.0); MEAN CORPUSCULAR VOLUME 96.4 fl (80.0-96.0); PLATELET COUNT, AUTOMATED 180 10^3/uL (150-450); RED BLOOD COUNT 3.33 10^6/uL (4.00-5.40); WHITE BLOOD COUNT 8.2 10^3/uL (4.0-10.0)
[2021-07-24 14:05] LABS: INR 0.97; PARTIAL THROMBOPLASTIN TIME 29.7 SECONDS (25.9-37.0); PROTHROMBIN TIME 13.2 SECONDS (12.7-14.5)
[2021-07-25] VITALS (41 sets, daily range): BP systolic 94–146; BP diastolic 50–85
--- NOTE | 2021-07-25 00:14 | IPNPDOC ---
Obstetrical Progress Note Date of Service Jul 25, 2021 Subjective Entered room for cervical exam; patient comfortable in bed. No complaints at this time. Objective Vital Signs Date Time Temp Pulse Resp B/P (MAP) Pulse Ox O2 Delivery O2 Flow Rate FiO2 07/24/21 17:54 86 105/66 (79) 07/24/21 11:45 98.0 16 Assessment Heart Rate (FHR): 140 Variability: Moderate Accelerations: Positive Decelerations: None Heart Rate Tracing: Category I Tocometer Contractions: Yes Frequency: every 3-7 min. Sterile Vaginal Examination Dilation: None Effacement (%): 30% Station: -3 Cervical Consistency: Medium Cervical Position: Middle Postion/Presentation: Cephalic presentation Assessment and Plan Age: 25 : 1 Term: 0 Pre-term: 0 Abortions: 0 Livin Weeks & Days 37+4 Status: Reassuring Group B Streptococcus: Negative Anticipate: Vaginal Delivery Additional Comments -category I tracing, can continue with cytotec induction, not autumn more than 3 per ten minutes. -routine intrapartum care CLAUDE CARRERO DO Jul 25, 2021 00:14
[2021-07-25] MEDS: miSOPROStol 25MCG 1/4 TABLET PO SCH ×3 (01:30→09:30)
--- NOTE | 2021-07-25 06:39 | IPNPDOC ---
Obstetrical Progress Note Date of Service Jul 25, 2021 Subjective Janice is feeling her contractions, considering epidural. Otherwise feels well. Objective Vital Signs Date Time Temp Pulse Resp B/P (MAP) Pulse Ox O2 Delivery O2 Flow Rate FiO2 07/25/21 00:20 68 113/60 (77) 07/25/21 00:20 97.3 07/24/21 11:45 16 Assessment Heart Rate (FHR): 130 Variability: Moderate Accelerations: Positive Decelerations: Prolonged (isolated single decel [id number], repositioned) Heart Rate Tracing: Category I Tocometer Contractions: Yes Frequency: every 3-7 min. Sterile Vaginal Examination Dilation: 1cm Effacement (%): 50% Station: -3 Cervical Consistency: Medium Cervical Position: Middle Postion/Presentation: Cephalic presentation Assessment and Plan Age: 25 : 1 Term: 0 Pre-term: 0 Abortions: 0 Livin Weeks & Days 37+5 Status: Reassuring Group B Streptococcus: Negative Anticipate: Vaginal Delivery Additional Comments She has had 3 doses of cytotec 25mcg. Has had occasional late decelrations, overall reassuring strip; cervical exam 1cm discussed azul bulb vs continuing cytotec with patient; she agreed to azul bulb. Incidental amniotomy during placement. Single bulb filled with 40cc. -routine intrapartum care -anticipate vaginal delivery CLAUDE CARRERO DO Jul 25, 2021 06:39
[2021-07-25] MEDS ORDERED: OXYTOCIN INJ 10 UNITS/ML VIAL (J2590) IV ONE ×2 (10:25→22:50)
[2021-07-25] MEDS ORDERED: OXYTOCIN DRIP 30 UNITS in IV 1 EA IV SCH (11:10)
--- NOTE | 2021-07-25 11:51 | IPNPDOC ---
Text Note Date of Service Item Value Date Time Prothrombin Time 13.2 SECONDS 07/24/21 1336 Activated Partial Thromboplast Time 29.7 SECONDS 07/24/21 1336 Prothromb Time International Ratio 0.97 07/24/21 1336 Fibrinogen 481 MG/DL H 07/24/21 1336 Item Value Date Time White Blood Count 8.2 10^3/uL 07/24/21 1336 Red Blood Count 3.33 10^6/uL L 07/24/21 1336 Hemoglobin 10.9 g/dl L 07/24/21 1336 Hematocrit 32.1 % L 07/24/21 1336 Mean Corpuscular Volume 96.4 fl H 07/24/21 1336 Mean Corpuscular Hemoglobin 32.7 pg 07/24/21 1336 Mean Corpuscular Hemoglobin Concent 34.0 g/dl 07/24/21 1336 Red Cell Distribution Width 13.7 % 07/24/21 1336 Platelet Count 180 10^3/uL 07/24/21 1336 Vital Signs Label Value Date Time Blood Pressure Assessment 105/63 (77) 07/25/21 0710 Source Automatic Cuff (NIBP) Pulse 69 07/25/21 0710 Pulse 81 07/25/21 0603 Blood Pressure Assessment 115/80 (92) 07/25/21 0603 Source Automatic Cuff (NIBP) Blood Pressure Assessment 103/59 (74) 07/25/21 0504 Source Automatic Cuff (NIBP) Pulse 65 07/25/21 0504 Pulse 71 07/25/21 0403 Blood Pressure Assessment 97/51 (66) 07/25/21 0403 Source Automatic Cuff (NIBP) Blood Pressure Assessment 104/56 (72) 07/25/21 0217 Source Automatic Cuff (NIBP) Pulse 77 07/25/21 0217 Patient Temperature 97.3 degrees F 07/25/21 0020 Blood Pressure Assessment 113/60 (77) 07/25/21 0020 Source Automatic Cuff (NIBP) Blood Pressure Assessment 113/60 (77) 07/25/21 0020 Source Automatic Cuff (NIBP) The patient was seen on 07/25/21. NOTE 07/25/21 assessment patient iol hx possible concealed abruptio , however patient seen in clinic with painful contractions was admitted started with 25 mg misoprostol x3 and azul bulb contractions mild assessment 2 cm posterior soft clear fluid catagory 1 strip safe to proceed augment with pitocin VS,Fishbone, I+O VS, Fishbone, I+O Laboratory Tests 07/24/21 13:36 Vital Signs Date Time Temp Pulse Resp B/P (MAP) Pulse Ox O2 Delivery O2 Flow Rate FiO2 07/25/21 07:10 69 105/63 (77) 07/25/21 00:20 97.3 07/24/21 11:45 16 Ambrocio Armenta MD Jul 25, 2021 11:46
[2021-07-25] MEDS ORDERED: FENTANYL 2MCG/ML ROPIVACAINE 0.2% IN 0.9% NACL 100ML IVBAG As Ordered ONE (14:18)
[2021-07-25] MEDS ORDERED: ePHEDrine SULFATE 25 MG/5 ML(5MG/ML) SYRINGE IV PRN (15:30)
[2021-07-25] MEDS ORDERED: EPIDURAL COMMENT XX SCH (15:30)
[2021-07-25] MEDS ORDERED: LACTATED RINGER'S 1000 ML IV PRN (15:30)
[2021-07-25] MEDS ORDERED: FENTANYL/ROPIVACAINE/NACL BAG 100 ML EPIDURAL SCH (15:30)
[2021-07-25] MEDS ORDERED: NALOXONE INJ 0.4MG/1ML VIAL (J2310 PER 1MG) IV PRN (15:30)
[2021-07-25] MEDS ORDERED: REFRIGERATOR IV KEYS XX PRN (15:30)
[2021-07-25] MEDS ORDERED: EPIDURAL/PCA KEYS XX PRN (15:30)
[2021-07-25] MEDS ORDERED: ONDANSETRON 4MG/2ML VIAL IV PRN (15:30)
[2021-07-25] MEDS ORDERED: diphenhydrAMINE 50MG/ML VIAL (J1200) IV PRN (15:30)
[2021-07-25] MEDS ORDERED: ONDANSETRON 4MG/2ML VIAL IV ONE (20:15)
[2021-07-25 22:29] LABS: CORD GAS PO2 A > 700.0 mmHg
[2021-07-25 22:32] LABS: CORD GAS O2 SAT V 26.2 %; CORD GAS SBC V 19.3 MEQ/L
[2021-07-25 22:35] LABS: CORD GAS ABE V -2.8; CORD GAS HCO3 V 24.2 MEQ/L; CORD GAS PCO2 V 50.2 mmHg; CORD GAS PH V 7.301 UNITS; CORD GAS TCO2 V 25.7 MEQ/L
[2021-07-25 22:37] LABS: CORD GAS ABE A -5.8; CORD GAS HCO3 A 22.5 MEQ/L; CORD GAS PCO2 A 55.9 mmHg; CORD GAS PH A 7.223 UNITS; CORD GAS TCO2 A 24.2 MEQ/L
[2021-07-25] MEDS ORDERED: ACETAMINOPHEN 500 MG TAB PO ONE (22:40)
[2021-07-25] MEDS ORDERED: MOM 30ML SUSPENSION UDC PO PRN (22:50)
[2021-07-25] MEDS ORDERED: LR 1,000 ML IV SCH (22:50)
[2021-07-25] MEDS ORDERED: ANUSOL HC CREAM 30GM TOP PRN (22:50)
[2021-07-25] MEDS ORDERED: OXYTOCIN DRIP 30 UNITS in IV 1 EA IV ONE (22:50)
[2021-07-25] MEDS ORDERED: MEASLES,MUMPS,RUBELLA VACCINE INJ (MMR-II) (90707) SC SCH (22:50)
[2021-07-25] MEDS ORDERED: DOCUSATE SODIUM 100MG CAPSULE PO PRN (22:50)
[2021-07-25] MEDS ORDERED: METHYLERGONOVINE MALEATE 0.2 MG TAB PO PRN (22:50)
[2021-07-25] MEDS ORDERED: ACETAMINOPHEN TAB 650MG DOSE (2X325MG) PO PRN (22:50)
[2021-07-25] MEDS ORDERED: ACETAMINOPHEN 500 MG TAB PO PRN (22:50)
[2021-07-25] MEDS ORDERED: RHOGAM 300 MCG (1500 IU) INJ (J2790) IM SCH (22:50)
[2021-07-25] MEDS ORDERED: DIBUCAINE 1% OINTMENT 30GM TOP PRN (22:50)
[2021-07-26 00:50] VITALS: BP 113/61
[2021-07-26 06:00] VITALS: BP 104/61
[2021-07-26] MEDS: PRENATAL VITAMINS CHEWABLE TABLET PO SCH (08:59)
[2021-07-26] MEDS: IBUPROFEN 600MG TAB PO PRN (08:59)
[2021-07-26 09:51] LABS: HEMATOCRIT 31.2 % (36.0-47.0); HEMOGLOBIN 10.6 g/dl (12.0-15.5); MEAN CORPUSCULAR VOLUME 97.2 fl (80.0-96.0); PLATELET COUNT, AUTOMATED 179 10^3/uL (150-450); RED BLOOD COUNT 3.21 10^6/uL (4.00-5.40); WHITE BLOOD COUNT 16.2 10^3/uL (4.0-10.0)
--- NOTE | 2021-07-26 09:54 | DN ---
DELIVERY NOTE DATE OF DELIVERY: 07/25/2022 DESCRIPTION OF DELIVERY: A 25-year-old, 1, now para 1, had an extensive history and evaluation for query concealed, revealed abruption which was not documented, only on the very first ultrasound. Otherwise, the last three were negative. She was admitted at 37 and 4 weeks of gestation because of abdominal pain and suspected abruptio placenta. She had an epidural in place, had a spontaneous vaginal delivery of a livebirth female infant weighing 6 lb, 2 oz, 2770 gm, Apgars of 7 and 8 at 1 and 5 minutes respectively. Arterial pH 7.22, base excess minus 5.8, venous pH 7.30, base excess minus 2.8. Placenta delivered spontaneously thereafter, three vessels in cord, membranes and tissues intact. Evaluation of the placenta, the maternal and surfaces, no evidence to suggest abruption of placenta, short or long-term. Placenta was sent to pathology for confirmation. The uterus contracted well down under Pitocin. The patient had a headache at the time of her spinal and we have given her Tylenol 1000. She had a slightly elevated temperature post-delivery after prolonged pushing. Examination of the anterior, posterior and lateral samayoa were complete. The sphincter was tight. Uterus contracted well down under Pitocin. Patient and baby tolerating procedure well. [facility]
--- NOTE | 2021-07-26 11:31 | IPN ---
PROGRESS NOTE DATE: 07/26/2021 SUBJECTIVE: This patient is a 25-year-old 1, now para 1 was admitted at 37 and 4weeks of gestation with contractions, abdominal pain and questionable abruption. She had an epidural in place, spontaneous vaginal delivery female infant, 6 pounds 2 ounces, 2770 gm, Apgars 7 and 8 at 1 and 5 minutes respectively. Arterial pH 7.22, base excess -5.8, venous pH 7.30, base excess -2.8. OBJECTIVE: On her first day her blood pressure 104/61, respirations 18, pulse 78, temperature 97.6. Her admitting hemoglobin was 10.9, hematocrit 32.2, platelets 180. day one hemoglobin is pending. The rest of the examination is unremarkable. Normocephalic, atraumatic. Neck full range of motion. Pupils equal and reactive to light. Distal pulses symmetric. No evidence of DVT, PE or superficial phlebitis. Chest is clear bilaterally to bases, no wheezes or rhonchi. No CVA tenderness. Abdomen soft, four quadrant bowel sounds are noted. Uterus 2 below. Lochia is moderate. No rashes, lesions or pruritus. No arthralgias, myalgia. No complaints of joint pain. No complaint of cough, wheezing, shortness of breath or dyspnea on exertion. No nausea, vomiting, diarrhea or constipation. No urgency or frequency presently. Breast feeding doing well. Passing gas. Pain management appropriate. The patient requested a breast pump which we will be given to her. Plan is for discharge tomorrow. Follow up at [facility] 6 weeks postop. All questions were answered. 20 minute discussion. cc: [facility]
[2021-07-26 17:55] VITALS: BP 104/65
[2021-07-27 06:15] VITALS: BP 102/64
[2021-07-27] MEDS ORDERED: IBUP-1022 PO (06:42)
[2021-07-27] MEDS ORDERED: ACET-683 PO (06:42)
[2021-07-27] MEDS ORDERED: DIBU28OI2 TOP (06:42)
--- NOTE | 2021-07-27 06:43 | DS.PDOC ---
Discharge Summary General Date of Admission Jul 24, 2021 at 11:27 Date of Discharge Jul 27, 2021 Discharge Summary HOSPITAL COURSE: Ms. Waller is a 25 yo G1 now P1 who underwent an uncomplicated on 25Jul2021 after being admitted for an IOL for abdominal pain and a suspected concealed placental abruption. Her course was unremarkable. On her day of discharge she met all appropriate discharge criteria. She was ambulating, voiding, tolerating a regular diet, and had minimal lochia. DISCHARGE MEDICATIONS: Please see below. ALLERGIES: Please see below. PHYSICAL EXAMINATION ON DISCHARGE: VITAL SIGNS: Please see below. GENERAL: AAOX3, NAD ABDOMINAL EXAMINATION: Fundus firm at U-2. No fundal tenderness EXTREMITIES: No edema PSYCHIATRIC EXAMINATION: Affect appropriate LABORATORY DATA: Please see below. ACTIVITY: Pelvic rest for 6 weeks DIET: Regular DISCHARGE PLAN: Discharge home DISPOSITION: Discharge home on 27Jul2021. DISCHARGE INSTRUCTIONS: 1. Nothing in the vagina for 6 weeks ITEMS TO FOLLOWUP ON ON OUTPATIENT: 1. Call to schedule a visit for 6 weeks post delivery DISCHARGE CONDITION: Stable. TIME SPENT ON DISCHARGE: Greater than 20 minutes. Alix Colin, Vital Signs/I&Os Vital Signs Date Time Temp Pulse Resp B/P (MAP) Pulse Ox O2 Delivery O2 Flow Rate FiO2 07/27/21 06:15 97.7 71 18 102/64 (77) 99 Room Air I&O- Last 24 Hours up to 6 AM 07/27/21 06:00 Output Total 400 ml Balance -400 ml Laboratory Data Labs 24H Laboratory Tests 2 07/26/21 09:28: Nucleated Red Blood Cells % (auto) 0.0 CBC/BMP Laboratory Tests 07/26/21 09:28 Discharge Medications Scheduled No122/Iron/Folic Acid ( Multi Tablet) 1 Each Tablet, 1 TAB PO QHS, (Reported) Scheduled PRN Acetaminophen (Acetaminophen) 500 Mg Tablet, 1,000 MG PO Q6HP PRN for PAIN LEVEL 6-10 Dibucaine (Dibucaine) 28 Gm Oint...g., 0 DOSE TOP Q4H PRN for CONSTIPATION Ibuprofen (Ibuprofen) 600 Mg Tablet, 600 MG PO Q6HP PRN for PAIN LEVEL 1-5 Allergies Coded Allergies: meperidine (Verified Allergy, Intermediate, 07/24/21) HIVES,FELT HYPER lactose (Unverified Adverse Reaction, Mild, 07/11/21) patient may choose to have certain foods containing lactose ALIX COLIN DO Jul 27, 2021 06:43
[2021-07-27] MEDS: IBUPROFEN 600MG TAB PO PRN ×2 (09:55→18:06)
[2021-07-27] MEDS: PRENATAL VITAMINS CHEWABLE TABLET PO SCH (09:55)
== END 2021-07-27 18:22 | disposition home or self-care (01) | DRG 807 ==
LOC: M LDI 11:27 → M OBS 07-26 00:44
PROVIDERS: ADMIT Obstetrics & Gynecology; ATTEND Obstetrics & Gynecology
PROC: 10E0XZZ Delivery of Products of Conception, External Approach (ICD-10-PCS; principal; 2021-07-25)
PROC: 10907ZC Drainage of Amniotic Fluid, Therapeutic from Products of Conception, Via Natural or Artificial Opening (ICD-10-PCS; 2021-07-25)
DX: O45.93 Premature separation of placenta, unspecified, third trimester (principal); Z37.0 Single live birth; Z3A.37 37 weeks gestation of pregnancy

== ENCOUNTER 2023-11-10 11:44 | Day surgery (SDC) | payer OTHER ==
[~2023-11-10] VITALS: Ht 160 cm; Wt 61.0 kg
[~2023-11-10 11:44] MED LIST changes: +ACET-683 PO; +DIBU28OI2 TOP; +IBUP-1022 PO; +VITA250T27 PO; -VITA250T4 PO
[2023-11-10] MEDS ORDERED: LIDOCAINE 1% SDV 30ML VIAL As Ordered ONE (12:31)
[2023-11-10] MEDS: DOXYCYCLINE HYCLATE 100MG TABLET PO ONE (13:03)
[2023-11-10] MEDS ORDERED: TRANEXAMIC ACID 100 MG/ML 10ML VIAL As Ordered ONE (13:56)
[2023-11-10] MEDS ORDERED: LR 1,000 ML IV SCH ×2 (14:30→14:55)
[2023-11-10] MEDS ORDERED: HYDROMORPHONE HCL 0.5 MG/ 0.5 ML SYRINGE IV PRN (14:30)
[2023-11-10] MEDS ORDERED: oxyCODONE 5MG TAB PO PRN (14:30)
[2023-11-10] MEDS ORDERED: fentaNYL 100 MCG/2 ML INJECTION IV PRN ×2 (14:30→14:55)
[2023-11-10] MEDS: ONDANSETRON 4MG 2ML VIAL IV PRN (14:52)
[2023-11-10] MEDS ORDERED: ONDANSETRON 4MG 2ML VIAL IV PRN (14:55)
[2023-11-10] MEDS: oxyCODONE 5MG TAB PO PRN (15:00)
[2023-11-10 16:07] VITALS: BP 126/75; TEMP 97.2; O2SAT 100
[2023-11-30 06:45] LABS: CHROMPC1 SEE SEPARATE REPORT
== END 2023-11-10 16:23 | disposition home or self-care (01) ==
LOC: M SDC 11:44
PROVIDERS: ATTEND Obstetrics & Gynecology
DX: O02.1 Missed abortion (principal)
CPT/HCPCS: 59820; 81229; 88233; 88262; 88291; 88305; J2405; S0191